=== PATIENT | male | born 1965 | race Caucasian/White ===

== ENCOUNTER → 2017-05-11 | Outpatient (CLI) | payer BC ==
[~2017-05-11] MED LIST: COZAAR50 MG OR; DIGOX0.25 MG PO; METOPROLOL TAR100 MG PO; NEXIUM20 MG PO; ZYRTEC ALLERGY10 MG PO
== END ==
LOC: SL 15:43
DX: G47.33 Obstructive sleep apnea (adult) (pediatric) (principal); R06.83 Snoring
CPT/HCPCS: G0399-TC